=== PATIENT | female | born 1950 | race Caucasian/White ===

== ENCOUNTER → 2018-12-08 10:07 | Outpatient (CLI) | payer MEDICARE, OTHER, SELFPAY ==
--- NOTE | 2018-12-08 10:11 | DI.MG.S_ITS ---
BILATERAL DIGITAL SCREENING MAMMOGRAM 3D/2D WITH CAD: 12/08/2018 CLINICAL: Routine screening. Family history of breast cancer. Comparison is made to exams dated: 12/08/2017 mammogram, 12/06/2016 mammogram, and 10/28/2015 mammogram - [facility]. The tissue of both breasts is heterogeneously dense. This may lower the sensitivity of mammography. Current study was also evaluated with a Computer Aided Detection (CAD) system. No significant masses, calcifications, or other findings are seen in either breast. There has been no significant interval change. IMPRESSION: NEGATIVE There is no mammographic evidence of malignancy. A 1 year screening mammogram is recommended. This exam was interpreted at Station ID: [id number]. NOTE: For mammograms, a report in lay terms will be sent to the patient. Approximately 15% of breast malignancies will not be visualized mammographically. In the management of a palpable breast mass, a negative mammogram must not discourage biopsy of a clinically suspicious lesion. Electronically Signed By: West esquivel/rene:12/11/2018 10:22:08 copy to: SCOTT MADRIGAL letter sent: Normal Exam ACR BI-RADS Category 1: Negative [id number]
== END ==
PROVIDERS: PCP Family Medicine; Visit Provider Obstetrics & Gynecology
DX: Z12.31 Encounter for screening mammogram for malignant neoplasm of breast (principal); Z80.3 Family history of malignant neoplasm of breast
CPT/HCPCS: 77063; 77067

== ENCOUNTER → 2018-12-19 10:47 | Outpatient (CLI) | payer MEDICARE, OTHER, SELFPAY ==
[2018-12-19 12:37] LABS: Cancer Antigen 125 8 U/mL (0-35)
== END ==
PROVIDERS: PCP Family Medicine; Visit Provider Obstetrics & Gynecology
DX: R19.09 Other intra-abdominal and pelvic swelling, mass and lump (principal); Z80.41 Family history of malignant neoplasm of ovary
CPT/HCPCS: 36415; 86304

== ENCOUNTER → 2021-07-03 10:42 | Outpatient (CLI) | payer MEDICARE, OTHER, SELFPAY ==
[2021-07-03 13:09] LABS: Appearance Urine UA CLEAR; Bilirubin Urine UA NEGATIVE (NEGATIVE); Color Urine UA YELLOW; Glucose Urine UA NEGATIVE (Negative); Ketones Urine UA NEGATIVE (NEGATIVE); Leukocyte Esterase Urine UA 1+ (NEGATIVE); Nitrite Urine UA NEGATIVE (Negative); Occult Blood Urine UA NEGATIVE (Negative); Protein Urine UA NEGATIVE (Negative); Urobilinogen Urine UA 0.2 E.U./dL (0.2)
[2021-07-03 13:11] LABS: pH Urine UA 6.5 (4.5-8.0)
[2021-07-03 13:36] LABS: RBC Urine None Seen (0-5/HPF)
[2021-07-03 13:37] LABS: Bacteria Urine None Seen; Culture Indicated Urine Specimen Cultured; WBC Urine 5-10/HPF (0-5/HPF)
== END ==
PROVIDERS: PCP Family Medicine; Referring Provider Obstetrics & Gynecology; Visit Provider Obstetrics & Gynecology
DX: N39.0 Urinary tract infection, site not specified (principal)
CPT/HCPCS: 81003; 81015; 87086

== ENCOUNTER → 2021-08-04 17:11 | Outpatient (CLI) | payer MEDICARE, OTHER, SELFPAY ==
[2021-08-04 19:49] LABS: Free T4, Direct Thyroxine 0.68 ng/dL (0.78-2.19)
[2021-08-04 20:03] LABS: Thyroid Stimulating Hormone 5.39 uIU/mL (0.47-4.68)
== END ==
PROVIDERS: PCP Family Medicine; Referring Provider Obstetrics & Gynecology; Visit Provider Obstetrics & Gynecology
DX: R61 Generalized hyperhidrosis (principal)
CPT/HCPCS: 36415; 84439; 84443

== ENCOUNTER → 2021-09-24 14:05 | Outpatient (CLI) | payer MEDICARE, OTHER, SELFPAY ==
[2021-09-24 15:52] LABS: Free T4, Direct Thyroxine 0.84 ng/dL (0.78-2.19)
[2021-09-24 16:06] LABS: Thyroid Stimulating Hormone 2.49 uIU/mL (0.47-4.68)
== END ==
PROVIDERS: PCP Family Medicine; Referring Provider Obstetrics & Gynecology; Visit Provider Obstetrics & Gynecology
DX: E03.9 Hypothyroidism, unspecified (principal)
CPT/HCPCS: 36415; 84439; 84443

== ENCOUNTER → 2021-11-26 17:17 | Outpatient (CLI) | payer MEDICARE, OTHER, SELFPAY ==
[2021-11-26 18:54] LABS: Thyroid Stimulating Hormone 2.05 uIU/mL (0.47-4.68)
[2021-11-26 19:19] LABS: T4 Total Thyroxine 7.76 ug/dL (5.5-11.0)
== END ==
PROVIDERS: PCP Family Medicine; Referring Provider Obstetrics & Gynecology; Visit Provider Obstetrics & Gynecology
DX: E03.9 Hypothyroidism, unspecified (principal)
CPT/HCPCS: 36415; 84436; 84443

== ENCOUNTER 2022-10-21 13:31 | Day surgery (SDC) | payer MEDICARE, OTHER, SELFPAY ==
--- NOTE | 2022-10-21 | PATH_ITS ---
[facility] Accession Number: [id number] No. of containers..02 Tissue . 01 Material submitted: . PART A: colon - ASCENDING COLON POLYP PART B: rectum - RECTAL POLYP . 01 Diagnosis: A. Ascending Colon Polyp: Small serrated lesion, consistent with early sessile serrated adenoma. . B. Rectal Polyp: Hyperplastic polyp. TONY 10/27/2022 1202 Local . 01 Electronically signed: . Chance Grey MD, PhD, Pathologist NPI- [id number] . 01 Gross description: . Part A: ASCENDING COLON POLYP: Received in formalin are 3 fragment(s) of schneider, soft tissue measuring 0.3 x 0.3 x 0.1 cm to 0.3 x 0.1 x 0.1 cm submitted entirely in 1 cassette(s) Part B: RECTAL POLYP: Received in formalin is 1 fragment(s) of schneider, soft tissue measuring 0.3 x 0.2 x 0.1 cm submitted entirely in 1 cassette(s) /CPE 10/22/2022 0946 Local . 01 Pathologist provided ICD-10: D12.2, K62.1 . 01 CPT . 969277, [id number] Specimen Comment: A courtesy copy of this report has been sent to [facility] Pathology Performed at: 01 [facility] [address] [place] [address] [address], [place], [place] [id number] MD Denny Rico MD Phone: [phone]
[2022-10-21 14:06] VITALS: BP 152/78; PULSE 76; RESP 16; TEMP 37.1; O2SAT 99; BMI 30.9
[2022-10-21] MEDS: LACTATED RINGERS 1,000 ML 150 ML IV (14:25)
--- NOTE | 2022-10-21 15:38 | PM.PREOP ---
Pre-operative Note Interval Note History & Physical reviewed/Exam performed by Physician: Yes Changes to H&P: No
--- NOTE | 2022-10-21 16:36 | P.OP.COLON_ITS ---
Operative Date/Time/Diagnoses Date of procedure: 10/21/22 Pre-op diagnosis: Colon cancer screening, history of polyps Procedure & Clinicians Study performed: Colonoscopy Surgeon: Mine Guy Procedure Notes Procedure in detail: Patient was taken to the endoscopy suite and placed in a left lateral decubitus position, time-out was performed. Conscious sedation was provided by an anesthesiologist. A digital rectal exam was performed and there were no masses or strictures. As the scope was introduced into the anal canal I was able to see evidence of fissure I took a photograph of that. I advanced the colonoscope through the rectum and across the colon in order to reach the cecum multiple maneuvers were required with pressure in 2 different spots as well as placing the patient supine in order to reach. It the colon was very floppy and there were a lot of loops. Upon withdrawal of the colonoscope I encountered 1 small polyp in the ascending colon which was biopsied with biopsy forceps and sent for pathology. Finally continuing the withdrawal a 2nd small polyp was seen in the rectum which was also biopsied. Total withdrawal time was 20 minutes. The bowel prep was excellent [place] bowel prep of 3. The scope was retroflexed and a photograph was taken of the hemorrhoidal piles. Upon withdrawal another photograph of the fissure is obtained and I was able to obtain a good exam from that fissure. There was some bleeding from it after the colonoscopy and it is in the anterior location. Findings: other findings (Anterior anal fissure) Specimen(s): other (1. Ascending colon polyp 2. Rectal)
[2022-10-21 16:37] VITALS: BP 129/67; PULSE 76; RESP 17; TEMP 36.2; O2SAT 95
[2022-10-21 16:41] VITALS: BP 135/72; PULSE 73; RESP 12; O2SAT 97
[2022-10-21 16:46] VITALS: BP 147/80; PULSE 66; RESP 14; O2SAT 96
[2022-10-21 16:53] VITALS: BP 141/77; PULSE 67; RESP 16; TEMP 36.3; O2SAT 99
== END 2022-10-21 17:18 | disposition home or self-care (01) ==
PROVIDERS: PCP Family Medicine; Referring Provider Surgery; Visit Provider Surgery
PROC: 0DJD8ZZ Inspection of Lower Intestinal Tract, Via Natural or Artificial Opening Endoscopic (ICD-10-PCS; CPT 45378; principal; 2022-10-21 14:30)
DX: Z12.11 Encounter for screening for malignant neoplasm of colon (principal); Z86.010 Personal history of colon polyps; K60.2 Anal fissure, unspecified; K64.4 Residual hemorrhoidal skin tags; D12.2 Benign neoplasm of ascending colon; K62.1 Rectal polyp
CPT/HCPCS: 45380; J2704

== ENCOUNTER → 2022-11-11 11:58 | Outpatient (CLI) | payer MEDICARE, OTHER, SELFPAY ==
[2022-11-11 13:08] LABS: Free T4, Direct Thyroxine 1.06 ng/dL (0.78-2.19)
[2022-11-11 13:22] LABS: Thyroid Stimulating Hormone 1.95 uIU/mL (0.47-4.68)
== END ==
PROVIDERS: PCP Family Medicine; Referring Provider Obstetrics & Gynecology; Visit Provider Obstetrics & Gynecology
DX: E03.9 Hypothyroidism, unspecified (principal)
CPT/HCPCS: 36415; 84439; 84443

== ENCOUNTER → 2023-01-10 09:09 | Outpatient (CLI) | payer MEDICARE, OTHER, SELFPAY ==
[2023-01-11 15:46] LABS: Candida species Negative (Negative); Gardnerella vaginalis Negative (Negative); Trichomoas vaginalis Negative (Negative)
== END ==
PROVIDERS: PCP Student in an Organized Health Care Education/Training Program; Visit Provider Specialist
DX: B37.2 Candidiasis of skin and nail (principal); N95.2 Postmenopausal atrophic vaginitis
CPT/HCPCS: 87480; 87510; 87660